=== PATIENT | female | born 1945 | race Caucasian/White ===

== ENCOUNTER → 2019-07-17 | Outpatient (CLI) | payer MEDICARE, OTHER | END | disposition home or self-care (01) | LOC: LAB SHORT 11:42 → PLD 11:42 | DX: D48.5 Neoplasm of uncertain behavior of skin (principal); L82.1 Other seborrheic keratosis | CPT/HCPCS: 88305 ==

== ENCOUNTER 2020-02-11 09:22 | Emergency (ER) | payer MEDICARE, OTHER ==
[~2020-02-11] VITALS: Ht 172.7 cm; Wt 90.7 kg
[2020-02-11 09:49] LABS: Source, Urine Clean Catch
[2020-02-11 09:53] LABS: Bilirubin, Urine Neg (Neg); Blood, Urine Neg (Neg); Glucose Qualitative, Urine Neg (Neg); Ketones, Urine Neg (Neg); Leukocyte Esterase, Urine Neg (Neg); Nitrite, Urine Neg (Neg); Protein, Urine Neg (Neg); Urobilinogen, Urine NORM (Normal)
[2020-02-11 09:54] LABS: Appearance, Urine Clear (Clear); Color, Urine Yellow (P-Yellow)
[2020-02-11] MEDS ORDERED: Robaxin-750750 MG PO (11:45)
== END 2020-02-11 11:58 | disposition home or self-care (01) ==
LOC: ER 09:22
PROVIDERS: Emergency Medicine
DX: M47.26 Other spondylosis with radiculopathy, lumbar region (principal); M51.16 Intervertebral disc disorders with radiculopathy, lumbar region; M16.12 Unilateral primary osteoarthritis, left hip
CPT/HCPCS: 72100; 73502; 81003; 99284-25

== ENCOUNTER 2020-02-16 10:12 | Emergency (ER) | payer MEDICARE, OTHER ==
[~2020-02-16] VITALS: Ht 172.7 cm; Wt 90.7 kg
[~2020-02-16 10:12] MED LIST: Robaxin-750750 MG PO
[2020-02-16] MEDS ORDERED: Percocet 10-321 EACH PO (10:51)
[2020-02-16] MEDS ORDERED: Valtrex1000 MG PO (10:51)
== END 2020-02-16 11:03 | disposition home or self-care (01) ==
LOC: ER 10:12
DX: B02.9 Zoster without complications (principal)
CPT/HCPCS: 99282

== ENCOUNTER → 2020-06-04 | Outpatient (CLI) | payer MEDICARE, OTHER ==
[~2020-06-04] MED LIST changes: +Percocet 10-321 EACH PO; +Valtrex1000 MG PO
== END ==
LOC: PLD 15:20 → LAB SHORT 15:20
DX: C44.41 Basal cell carcinoma of skin of scalp and neck (principal)
CPT/HCPCS: 88305

== ENCOUNTER → 2020-12-14 | Outpatient (CLI) | payer MEDICARE, OTHER | END | disposition home or self-care (01) | LOC: LAB SHORT 12:46 → LAB 12:46 | DX: L85.8 Other specified epidermal thickening (principal) | CPT/HCPCS: 88305 ==

== ENCOUNTER 2021-08-19 13:07 | Day surgery (SDC) | payer MEDICARE, OTHER ==
[~2021-08-19] VITALS: Ht 167.6 cm; Wt 89.7 kg
== END 2021-08-19 15:17 | disposition home or self-care (01) ==
LOC: ORSCSDS 13:07
PROVIDERS: Ophthalmology
PROC: 08RJ3JZ Replacement of Right Lens with Synthetic Substitute, Percutaneous Approach (ICD-10-PCS; principal; 2021-08-19 14:30)
DX: H25.11 Age-related nuclear cataract, right eye (principal); J45.909 Unspecified asthma, uncomplicated; Z87.891 Personal history of nicotine dependence
CPT/HCPCS: 93005; 93010; J2001; J2250; J3301; J7040; V2632

== ENCOUNTER 2022-11-03 12:27 | Inpatient (IN) | payer MEDICARE, OTHER ==
[~2022-11-03] VITALS: Ht 172.7 cm; Wt 92.8 kg
[2022-11-03 14:03] LABS: BASOPHILS ABSOLUTE AUTO 0.03 K/mm3 (0.00-0.23); BASOPHILS PERCENT AUTO 1 % (0-2); EOSINOPHILS ABSOLUTE AUTO 0.06 K/mm3 (0.00-0.68); EOSINOPHILS PERCENT AUTO 1 % (0-6); Hematocrit 37.6 % (33.0-51.0); Hemoglobin 12.1 g/dL (11.5-16.0); IMMATURE GRAN ABSOLUTE AUTO 0.01 K/mm3 (0.00-0.10); IMMATURE GRAN PERCENT AUTO 0 % (0-1); LYMPHOCYTES ABSOLUTE AUTO 1.78 K/mm3 (0.84-5.20); LYMPHOCYTES PERCENT AUTO 37 % (21-46); MONOCYTES PERCENT AUTO 6 % (4-13); Mean Corpuscular HGB 30.2 pg (26.0-34.0); Mean Corpuscular HGB Conc 32.2 g/dL (31.5-36.5); Mean Corpuscular Volume 94 fL (80-100); Mean Platelet Volume 10.3 fL (9.1-12.4); NEUTROPHILS ABSOLUTE AUTO 2.59 K/mm3 (1.96-9.15); NEUTROPHILS PERCENT AUTO 54 % (41-73); Platelet Count 228 K/mm3 (150-400); RDW Coefficient Variation 12.9 % (11.7-14.2); RDW Standard Deviation 44.5 fL (35.1-46.3); Red Blood Cell Count 4.01 M/mm3 (3.80-5.20); White Blood Cell Count 4.77 K/mm3 (4.00-11.30)
[2022-11-03 14:28] LABS: Albumin, Blood 3.7 g/dL (3.4-5.0); Albumin/Globulin Ratio 0.8 (0.8-1.8); Bilirubin, Total 0.9 mg/dL (0.1-1.0); Bun/Creatinine Ratio 13.9 (12.0-20.0); Calcium, Blood 9.5 mg/dL (8.5-10.1); Creatinine, Blood 1.15 mg/dL (0.40-1.00); Globulin, Blood 4.7 g/dL (2.2-4.0); Potassium, Blood 4.3 mmol/L (3.5-5.5); Total Protein, Blood 8.4 g/dL (6.4-8.2)
[2022-11-03 14:45] LABS: International Normalized Ratio 1.05
[2022-11-03 18:41] LABS: Influenza A, PCR NEGATIVE (NEGATIVE); Influenza B, PCR NEGATIVE (NEGATIVE); Resp Syncytial Virus, PCR NEGATIVE (NEGATIVE); SARS-Cov-2 (COVID-19) PCR, MMC NEGATIVE (NEGATIVE)
[2022-11-03] MEDS ORDERED: METO25ER PO (22:28)
--- NOTE | 2022-11-04 04:25 | NUR ---
ARRIVAL TO PCU5/SHIFT SUMMARY PT ARRIVED TO PCU6 AT APPROXIMATELY 0100. PT GOT UP FROM ER [facility] AND AMBULATED INTO BATHRROM WITH SBA. PT ORIENTED TO ROOM/UNIT/CALL LIGHT. PT A&Ox4, CALLS AND COMMUNICATES NEEDS APPROPRIATELY. VSS, BP STABLE, AFIB 90-100's UP TO 120's WITH ACTIVITY, DENIES CP/PRESSURE. SpO2> 92% RA, REPORTS MILD SOB AT REST, WORSE SOB WITH ACTIVITY AND LYING FLAT. PT STATED THAT THE SOB HAS GOTTEN BETTER SINCE ARIVING TO HOSPITAL AND RECEIVING LASIX IN ER. PT JH TO BATHROOM, CONTINENT OF URINE, NO BM THIS SHIFT. NO OTHER EVENTS, WILL REPORT TO ONCOMING RN.
[2022-11-04 04:36] LABS: Magnesium, Blood 2.3 mg/dL (1.6-2.4)
[2022-11-04 04:43] LABS: Calcium, Blood 9.6 mg/dL (8.5-10.1); Creatinine, Blood 1.15 mg/dL (0.40-1.00); Potassium, Blood 3.6 mmol/L (3.5-5.5)
--- NOTE | 2022-11-04 10:25 | NUR ---
CARE ASSUMPTION THIS RN ASSUMED CARE AT 0700. VSS. TELE AFIB 90-100S. PATIENT IS ALERT AND ORIENTED X4. PATIENT REPROTS NO CHEST PAIN/PRESSURE, PAIN, OR SHORTNESS OF BREATH. LUNG SOUNDS CLEAR UPPER LOBES BILATERALLY AND DIM IN BASES. PATIENT HAS +1 EDEMA TO LOWER EXTREMITIES. ABD IS ACTIVE SOFT AND NONTENDER. PATIENT IS ABLE TO VOID INDEPDENTLY. PATIENT IS ABLE TO PERFORM ALL ADLS INDEPDENTLY. SEE SHIF ASSESSMENT FOR FURTHER DETAILS. NATALIO IN TO SEE PATIENT THIS AM AND DISCUSSED PLAN OF CARE. PLAN OF CARE IS UP TO DATE. CALL LIGHT IS WITHIN REACH AND BED IS IN LOWEST POSITION.
--- NOTE | 2022-11-04 18:29 | NUR ---
SHIFT SUMMARY PATIEINT NEURO REMAINS INTACT AND UNCHANGED. VSS. TELE AFIB. PATIENT HAS BEEN INDEPDENT IN THE ROOM. PATIENT USES CALL LIGHT APPRORIATELY. NO ACUTE CHANGES THIS SHIFT. PATIENT HAD AT BEDSIDE THROUGHOUT THE DAY. PLAN OF CARE IS UP TO DATE. CALL LIGHT WITHIN REACH AND BED IN LOWEST POSITION.
[2022-11-05 04:13] LABS: BASOPHILS ABSOLUTE AUTO 0.02 K/mm3 (0.00-0.23); BASOPHILS PERCENT AUTO 0 % (0-2); EOSINOPHILS PERCENT AUTO 2 % (0-6); Hematocrit 36.6 % (33.0-51.0); Hemoglobin 11.7 g/dL (11.5-16.0); IMMATURE GRAN ABSOLUTE AUTO 0.02 K/mm3 (0.00-0.10); IMMATURE GRAN PERCENT AUTO 0 % (0-1); LYMPHOCYTES ABSOLUTE AUTO 2.12 K/mm3 (0.84-5.20); LYMPHOCYTES PERCENT AUTO 37 % (21-46); MONOCYTES ABSOLUTE AUTO 0.37 K/mm3 (0.16-1.47); MONOCYTES PERCENT AUTO 7 % (4-13); Mean Corpuscular HGB 29.5 pg (26.0-34.0); Mean Corpuscular Volume 92 fL (80-100); Mean Platelet Volume 10.5 fL (9.1-12.4); NEUTROPHILS ABSOLUTE AUTO 3.05 K/mm3 (1.96-9.15); NEUTROPHILS PERCENT AUTO 54 % (41-73); Platelet Count 234 K/mm3 (150-400); RDW Coefficient Variation 12.6 % (11.7-14.2); RDW Standard Deviation 42.6 fL (35.1-46.3); Red Blood Cell Count 3.97 M/mm3 (3.80-5.20); White Blood Cell Count 5.68 K/mm3 (4.00-11.30)
[2022-11-05 04:44] LABS: Albumin, Blood 3.3 g/dL (3.4-5.0); Anion Gap 5 mmol/L (6-16); Blood Urea Nitrogen 20 mg/dL (8-24); Bun/Creatinine Ratio 14.9 (12.0-20.0); CO2, Blood 30 mmol/L (21-32); Calcium, Blood 9.3 mg/dL (8.5-10.1); Chloride, Blood 100 mmol/L (98-108); Creatinine, Blood 1.34 mg/dL (0.40-1.00); Glomerular Filtration Rate 41 (60-); Glucose, Blood 104 mg/dL (70-99); Phosphorus, Blood 3.8 mg/dL (2.5-4.9); Sodium, Blood 135 mmol/L (136-145)
--- NOTE | 2022-11-05 04:51 | NUR ---
PT INDEPENDENT IN ROOM, AMBULATORY TO BATHROOM, NO ISSUES OVERNIGHT, AFEBRILE, VSS
--- NOTE | 2022-11-05 07:59 | NUR ---
Received report from Noc RN. Patient awakened easily to verbal stimuli. She is alert and oriented and is able to communicate her needs. She is independent with positioning for comfort. She is in A-Fib 80-100's. She is on RA and sats 97% and denies any SOB. She has20 ga IV to RAC and has been flushed and SL'd.
[2022-11-05] MEDS ORDERED: POTCHL20ER PO (10:14)
[2022-11-05] MEDS ORDERED: FURO40 PO (10:14)
--- NOTE | 2022-11-05 11:30 | NUR ---
Dr Busch has been by and is discharging patient. She is up in room doing ADLS, tolerated meds well. She was given written discharge orders and returned understandin. PCT removed IV intact. She was taken to front of hospital and went home by cab. All belonging with patient.
== END 2022-11-05 11:35 | disposition home or self-care (01) | DRG 292 ==
LOC: ER 12:27 → ERHOLD 18:01 → PCU 18:01
PROVIDERS: Emergency Medicine; Family Medicine; Physician Assistant; ADMIT Internal Medicine
DX: I50.23 Acute on chronic systolic (congestive) heart failure (principal); I24.8 Other forms of acute ischemic heart disease; I48.20 Chronic atrial fibrillation, unspecified; Z66 Do not resuscitate; Z20.822 Contact with and (suspected) exposure to COVID-19
CPT/HCPCS: 0241U; 36415; 71046; 71260; 80048; 80053; 80069; 83690; 83735; 83880; 84484; 85025; 85379; 85610; 93005; 93010; 93306; 96374-59; 99285-25; A9270; J1650; J1940; Q9967

== ENCOUNTER 2022-11-23 09:47 | Emergency (ER) | payer MEDICARE, OTHER ==
[~2022-11-23] VITALS: Ht 172.7 cm; Wt 86.2 kg
[~2022-11-23 09:47] MED LIST changes: +FURO40 PO; +METO25ER PO; +POTCHL20ER PO
[2022-11-23 10:27] LABS: BASOPHILS ABSOLUTE AUTO 0.03 K/mm3 (0.00-0.23); BASOPHILS PERCENT AUTO 1 % (0-2); EOSINOPHILS ABSOLUTE AUTO 0.18 K/mm3 (0.00-0.68); EOSINOPHILS PERCENT AUTO 3 % (0-6); Hematocrit 42.1 % (33.0-51.0); Hemoglobin 13.6 g/dL (11.5-16.0); IMMATURE GRAN ABSOLUTE AUTO 0.01 K/mm3 (0.00-0.10); IMMATURE GRAN PERCENT AUTO 0 % (0-1); LYMPHOCYTES ABSOLUTE AUTO 2.01 K/mm3 (0.84-5.20); LYMPHOCYTES PERCENT AUTO 34 % (21-46); MONOCYTES ABSOLUTE AUTO 0.39 K/mm3 (0.16-1.47); MONOCYTES PERCENT AUTO 7 % (4-13); Mean Corpuscular HGB 29.5 pg (26.0-34.0); Mean Corpuscular HGB Conc 32.3 g/dL (31.5-36.5); Mean Corpuscular Volume 91 fL (80-100); Mean Platelet Volume 10.2 fL (9.1-12.4); NEUTROPHILS ABSOLUTE AUTO 3.33 K/mm3 (1.96-9.15); NEUTROPHILS PERCENT AUTO 56 % (41-73); Platelet Count 201 K/mm3 (150-400); RDW Coefficient Variation 12.7 % (11.7-14.2); RDW Standard Deviation 41.7 fL (35.1-46.3); Red Blood Cell Count 4.61 M/mm3 (3.80-5.20); White Blood Cell Count 5.95 K/mm3 (4.00-11.30)
[2022-11-23 10:55] LABS: Albumin, Blood 3.9 g/dL (3.4-5.0); Albumin/Globulin Ratio 0.8 (0.8-1.8); Bilirubin, Total 0.7 mg/dL (0.1-1.0); Bun/Creatinine Ratio 23.1 (12.0-20.0); Calcium, Blood 9.5 mg/dL (8.5-10.1); Creatinine, Blood 1.21 mg/dL (0.40-1.00); Globulin, Blood 4.9 g/dL (2.2-4.0); Potassium, Blood 4.8 mmol/L (3.5-5.5); Total Protein, Blood 8.8 g/dL (6.4-8.2)
[2022-11-23] MEDS ORDERED: ALDACTONE25 MG PO (13:11)
== END 2022-11-23 13:31 | disposition home or self-care (01) ==
LOC: ER 09:47
PROVIDERS: Physician Assistant
DX: I50.9 Heart failure, unspecified (principal); J44.9 Chronic obstructive pulmonary disease, unspecified; N18.30 Chronic kidney disease, stage 3 unspecified; I25.2 Old myocardial infarction; Z79.899 Other long term (current) drug therapy
CPT/HCPCS: 71046; 80053; 83880; 84484; 85025

== ENCOUNTER 2023-01-28 00:11 | Day surgery (SDC) | payer MEDICARE, OTHER ==
[~2023-01-28 00:11] MED LIST changes: +ALDACTONE25 MG PO; +ELIQUIS5 M3 PO
[2023-01-28 08:09] VITALS: BP 132/97
== END 2023-01-28 08:11 | disposition home or self-care (01) ==
LOC: ATC 00:11
DX: I50.20 Unspecified systolic (congestive) heart failure (principal); I48.0 Paroxysmal atrial fibrillation; R06.02 Shortness of breath; I34.0 Nonrheumatic mitral (valve) insufficiency; I48.19 Other persistent atrial fibrillation; J45.909 Unspecified asthma, uncomplicated; Z88.5 Allergy status to narcotic agent; Z88.8 Allergy status to other drugs, medicaments and biological substances
CPT/HCPCS: 96374; J1940

== ENCOUNTER 2023-01-29 00:03 | Day surgery (SDC) | payer MEDICARE, OTHER ==
[2023-01-29 08:03] VITALS: BP 126/91
== END 2023-01-29 08:10 | disposition home or self-care (01) ==
LOC: ATC 00:03
DX: I50.20 Unspecified systolic (congestive) heart failure (principal); I48.0 Paroxysmal atrial fibrillation; R06.02 Shortness of breath; I34.0 Nonrheumatic mitral (valve) insufficiency; I48.19 Other persistent atrial fibrillation; J45.909 Unspecified asthma, uncomplicated; Z88.5 Allergy status to narcotic agent; Z88.8 Allergy status to other drugs, medicaments and biological substances
CPT/HCPCS: 96374; J1940

== ENCOUNTER 2023-03-08 06:13 | Day surgery (SDC) | payer MEDICARE, OTHER ==
[2023-03-08] VITALS (11 sets, daily range): BP systolic 111–141; BP diastolic 88–116
[~2023-03-08] VITALS: Ht 175.3 cm; Wt 86.0 kg
[~2023-03-08 06:13] MED LIST changes: +MAGNESIUM OXID500 MG PO; +Saw Palmetto160 MG; +Vitamin B Comple1 EA PO; +XARELTO20 MG PO
--- NOTE | 2023-03-08 07:24 | NUR ---
PT'S IN ROOM.
--- NOTE | 2023-03-08 08:50 | NUR ---
DR. CAREY AT THE BEDSIDE AND SPOKE EXTENSIVELY WITH THE PATIENT AND , ALL QUEESTIONS ANSWERED. CONSENTED AND PATIENT TAKEN TO THE CATH[facility].
--- NOTE | 2023-03-08 10:15 | NUR ---
PATIENT ARRIVED TO RECOVERY ROOM HOB FLAT. R GROIN SITE C/D/I SOFT/NONTENDER, NO EVIDENCE OF HEMATOMA. PATIENT CONVERSING APPROPRIATELY. VSS ON ROOM AIR
[2023-03-08] MEDS ORDERED: ELIQUIS5 M2 PO (10:23)
--- NOTE | 2023-03-08 11:15 | NUR ---
HOB ELEVATED 30 DEGREES, R GROIN SITE C/D/I SOFT/NONTENDER, NO EVIDENCE OF HEMATOMA. VSS ON ROOM AIR
--- NOTE | 2023-03-08 11:45 | NUR ---
HOB ELEVATED 45 DEGREES. R GROIN SITE C/D/I SOFT/NONTENDER, NO EVIDENCE OF HEMATOMA. PATIENT TOLERATING PO INTAKE WELL. VSS ON ROOM AIR
--- NOTE | 2023-03-08 12:16 | NUR ---
DISCHARGE INSTRUCTIONS AND FOLLOW UP APPOINTMENT REVIEWED WITH PATIENT AND SPOUSE AT BEDSIDE, ALL QUESTIONS WERE ANSWERED. R GROIN SITE C/D/I SOFT/NONTENDER, NO EVIDENCE OF HEMATOMA. VSS ON ROOM AIR
--- NOTE | 2023-03-08 12:40 | NUR ---
PATIENT AMBULATING TO RESTROOM AND VOIDING WITHOUT DIFFICULTY. R GROIN SITE C/D/I SOFT/NONTENDER, NO EVIDENCE OF HEMATOMA. VSS ON ROOM AIR.
--- NOTE | 2023-03-08 12:57 | NUR ---
PATIENT DISCHARGED HOME AT THIS TIME. ALL PATIENT BELONGINGS AND PAPERWORK LEFT WITH PATIENT. R GROIN SITE C/D/I SOFT/NONTENDER, NO EVIDENCE OF HEMATOMA. PATIENT INSTRUCTED ON FEMORAL SITE CARE. PIV REMVOED WITHOUT DIFFICULTY, CATHETER INTACT. PATIENT WHEELED TO HOSPITAL ENTRANCE, SPOUSE ABLE TO PROVIDE TRANSPORTATION HOME.
== END 2023-03-08 13:41 | disposition home or self-care (01) ==
LOC: MHTC 06:13
DX: I25.118 Atherosclerotic heart disease of native coronary artery with other forms of angina pectoris (principal); I34.0 Nonrheumatic mitral (valve) insufficiency; I48.19 Other persistent atrial fibrillation; J45.909 Unspecified asthma, uncomplicated; I50.9 Heart failure, unspecified; N28.9 Disorder of kidney and ureter, unspecified; Z79.01 Long term (current) use of anticoagulants; Z88.5 Allergy status to narcotic agent; Z88.8 Allergy status to other drugs, medicaments and biological substances
CPT/HCPCS: 76937; 93005; 93010; 93458; 99152; 99153; C1760; C1769; C1894; J1644; J2250; J3010; J7030; J7050; Q9967

== ENCOUNTER 2023-03-29 05:56 | Day surgery (SDC) | payer MEDICARE, OTHER ==
[~2023-03-29 05:56] MED LIST changes: +ELIQUIS5 M2 PO
[2023-03-29 07:00] VITALS: BP 126/97
[2023-03-29 07:57] VITALS: BP 128/84
[2023-03-29 07:58] VITALS: BP 121/91
[2023-03-29 08:21] VITALS: BP 120/92
[2023-03-29 08:33] VITALS: BP 130/94
--- NOTE | 2023-03-29 09:00 | NUR ---
PT VERBALIZED UNDERSTANDING OF WRITTEN AND VERBAL D/C INST. PT AMB TO BATHROOM /S DIFFICULTY. SB 55BPM ON D/C. IV REMOVED. PT TAKEN OUT OF THE [facility]ENTER VIA W/C.
== END 2023-03-29 09:00 | disposition home or self-care (01) ==
LOC: MHTC 05:56
DX: I48.19 Other persistent atrial fibrillation (principal); I50.20 Unspecified systolic (congestive) heart failure; I48.0 Paroxysmal atrial fibrillation; I20.9 Angina pectoris, unspecified; I25.2 Old myocardial infarction; I42.9 Cardiomyopathy, unspecified; Z88.5 Allergy status to narcotic agent
CPT/HCPCS: 92960; 93005; 93010; 93312; 93325; A9270; J0282; J2704; J7030

== ENCOUNTER 2023-05-16 12:38 | Emergency (ER) | payer MEDICARE, OTHER ==
[~2023-05-16] VITALS: Ht 175.3 cm; Wt 85.7 kg
[2023-05-16 13:49] LABS: BASOPHILS ABSOLUTE AUTO 0.02 K/mm3 (0.00-0.23); BASOPHILS PERCENT AUTO 1 % (0-2); EOSINOPHILS ABSOLUTE AUTO 0.03 K/mm3 (0.00-0.68); EOSINOPHILS PERCENT AUTO 1 % (0-6); Hematocrit 35.5 % (33.0-51.0); Hemoglobin 11.7 g/dL (11.5-16.0); IMMATURE GRAN ABSOLUTE AUTO 0.01 K/mm3 (0.00-0.10); IMMATURE GRAN PERCENT AUTO 0 % (0-1); LYMPHOCYTES ABSOLUTE AUTO 1.36 K/mm3 (0.84-5.20); LYMPHOCYTES PERCENT AUTO 33 % (21-46); MONOCYTES ABSOLUTE AUTO 0.27 K/mm3 (0.16-1.47); MONOCYTES PERCENT AUTO 7 % (4-13); Mean Corpuscular HGB 30.8 pg (26.0-34.0); Mean Corpuscular Volume 93 fL (80-100); Mean Platelet Volume 9.9 fL (9.1-12.4); NEUTROPHILS ABSOLUTE AUTO 2.39 K/mm3 (1.96-9.15); NEUTROPHILS PERCENT AUTO 59 % (41-73); Platelet Count 235 K/mm3 (150-400); RDW Coefficient Variation 14.1 % (11.7-14.2); RDW Standard Deviation 48.2 fL (35.1-46.3); White Blood Cell Count 4.08 K/mm3 (4.00-11.30)
[2023-05-16 14:03] LABS: Albumin, Blood 3.6 g/dL (3.4-5.0); Albumin/Globulin Ratio 0.7 (0.8-1.8); Bilirubin, Total 0.5 mg/dL (0.1-1.0); Bun/Creatinine Ratio 12.3 (12.0-20.0); Calcium, Blood 9.2 mg/dL (8.5-10.1); Creatinine, Blood 1.46 mg/dL (0.40-1.00); Globulin, Blood 5.3 g/dL (2.2-4.0); Potassium, Blood 3.5 mmol/L (3.5-5.5); Total Protein, Blood 8.9 g/dL (6.4-8.2)
[2023-05-16 15:18] LABS: Source, Urine Clean Catch
[2023-05-16 15:28] LABS: Bilirubin, Urine Neg (Neg); Blood, Urine Neg (Neg); Color, Urine Yellow (P-Yellow); Glucose Qualitative, Urine Neg (Neg); Ketones, Urine Neg (Neg); Leukocyte Esterase, Urine 1+ (Neg); Nitrite, Urine Neg (Neg); Protein, Urine Neg (Neg); Specific Gravity, Urine 1.015 (1.003-1.022); Urobilinogen, Urine NORM (Normal)
[2023-05-16 15:41] LABS: Appearance, Urine Hazy (Clear)
[2023-05-16 15:42] LABS: Red Blood Cells, Urine 0-2 /hpf (0-2)
[2023-05-16 15:43] LABS: Bacteria Mod /hpf; Mucus Light (0-Heavy); Squamous Epithelial Cells Few /hpf (Few)
[2023-05-16] MEDS ORDERED: LIDOCAINE1 EACH TOP (16:02)
[2023-05-16] MEDS ORDERED: Robaxin750 MG PO (16:02)
[2023-05-16 16:20] VITALS: BP 146/99
[2023-05-16] MEDS ORDERED: CEPH500 PO (16:49)
== END 2023-05-16 16:20 | disposition home or self-care (01) ==
LOC: ER 12:38
PROVIDERS: Emergency Medicine
DX: N39.0 Urinary tract infection, site not specified (principal); M54.50 Low back pain, unspecified; Z88.5 Allergy status to narcotic agent; Z88.8 Allergy status to other drugs, medicaments and biological substances; Z79.899 Other long term (current) drug therapy; I48.91 Unspecified atrial fibrillation; I50.9 Heart failure, unspecified; J44.9 Chronic obstructive pulmonary disease, unspecified; N18.30 Chronic kidney disease, stage 3 unspecified; Z87.891 Personal history of nicotine dependence
CPT/HCPCS: 80053; 81001; 85025; 99284; A9270

== ENCOUNTER 2023-05-20 17:24 | Emergency (ER) | payer MEDICARE, OTHER ==
[~2023-05-20] VITALS: Ht 175.3 cm; Wt 83.9 kg
[~2023-05-20 17:24] MED LIST changes: +CEPH500 PO; +LIDOCAINE1 EACH TOP; +Robaxin750 MG PO
[2023-05-20 18:28] LABS: BASOPHILS ABSOLUTE AUTO 0.03 K/mm3 (0.00-0.23); BASOPHILS PERCENT AUTO 1 % (0-2); EOSINOPHILS ABSOLUTE AUTO 0.04 K/mm3 (0.00-0.68); EOSINOPHILS PERCENT AUTO 1 % (0-6); Hematocrit 35.3 % (33.0-51.0); Hemoglobin 11.8 g/dL (11.5-16.0); IMMATURE GRAN ABSOLUTE AUTO 0.01 K/mm3 (0.00-0.10); IMMATURE GRAN PERCENT AUTO 0 % (0-1); LYMPHOCYTES ABSOLUTE AUTO 1.83 K/mm3 (0.84-5.20); LYMPHOCYTES PERCENT AUTO 36 % (21-46); MONOCYTES ABSOLUTE AUTO 0.29 K/mm3 (0.16-1.47); MONOCYTES PERCENT AUTO 6 % (4-13); Mean Corpuscular HGB 30.6 pg (26.0-34.0); Mean Corpuscular HGB Conc 33.4 g/dL (31.5-36.5); Mean Corpuscular Volume 92 fL (80-100); Mean Platelet Volume 10.1 fL (9.1-12.4); NEUTROPHILS ABSOLUTE AUTO 2.89 K/mm3 (1.96-9.15); NEUTROPHILS PERCENT AUTO 57 % (41-73); Platelet Count 211 K/mm3 (150-400); RDW Standard Deviation 46.6 fL (35.1-46.3); Red Blood Cell Count 3.85 M/mm3 (3.80-5.20); White Blood Cell Count 5.09 K/mm3 (4.00-11.30)
[2023-05-20 18:43] LABS: Albumin, Blood 3.6 g/dL (3.4-5.0); Albumin/Globulin Ratio 0.7 (0.8-1.8); Bilirubin, Total 0.6 mg/dL (0.1-1.0); Bun/Creatinine Ratio 9.7 (12.0-20.0); Calcium, Blood 9.6 mg/dL (8.5-10.1); Creatinine, Blood 1.24 mg/dL (0.40-1.00); Globulin, Blood 5.2 g/dL (2.2-4.0); Magnesium, Blood 2.1 mg/dL (1.6-2.4); Potassium, Blood 3.7 mmol/L (3.5-5.5); Total Protein, Blood 8.8 g/dL (6.4-8.2)
[2023-05-20 19:07] LABS: Source, Urine Clean Catch
[2023-05-20 19:12] LABS: Appearance, Urine Clear (Clear); Bilirubin, Urine Neg (Neg); Blood, Urine Neg (Neg); Glucose Qualitative, Urine Neg (Neg); Ketones, Urine Neg (Neg); Leukocyte Esterase, Urine Neg (Neg); Nitrite, Urine Neg (Neg); Protein, Urine Neg (Neg); Specific Gravity, Urine 1.015 (1.003-1.022); Urobilinogen, Urine NORM (Normal)
[2023-05-20 19:13] LABS: Color, Urine Pale Yellow (P-Yellow)
[2023-05-20 20:00] VITALS: BP 125/99
== END 2023-05-20 20:20 | disposition home or self-care (01) ==
LOC: ER 17:24
PROVIDERS: Student in an Organized Health Care Education/Training Program
DX: M54.50 Low back pain, unspecified (principal); G89.29 Other chronic pain; R10.9 Unspecified abdominal pain; Z88.5 Allergy status to narcotic agent; Z88.8 Allergy status to other drugs, medicaments and biological substances; Z79.899 Other long term (current) drug therapy; I48.91 Unspecified atrial fibrillation; I50.9 Heart failure, unspecified; N18.30 Chronic kidney disease, stage 3 unspecified; I25.2 Old myocardial infarction; Z87.891 Personal history of nicotine dependence
CPT/HCPCS: 74177; 80053; 81003; 83735; 85025; 93005; 93010; 96374-59; 96376; 99284-25; A9270; J3010; Q9967

== ENCOUNTER 2023-06-23 13:35 | Emergency (ER) | payer MEDICARE, OTHER ==
[~2023-06-23] VITALS: Ht 177.8 cm; Wt 81.7 kg
[2023-06-23 16:42] LABS: BASOPHILS ABSOLUTE AUTO 0.03 K/mm3 (0.00-0.23); BASOPHILS PERCENT AUTO 1 % (0-2); EOSINOPHILS ABSOLUTE AUTO 0.03 K/mm3 (0.00-0.68); EOSINOPHILS PERCENT AUTO 1 % (0-6); Hematocrit 41.3 % (33.0-51.0); Hemoglobin 13.9 g/dL (11.5-16.0); IMMATURE GRAN ABSOLUTE AUTO 0.03 K/mm3 (0.00-0.10); IMMATURE GRAN PERCENT AUTO 1 % (0-1); LYMPHOCYTES ABSOLUTE AUTO 1.94 K/mm3 (0.84-5.20); LYMPHOCYTES PERCENT AUTO 30 % (21-46); MONOCYTES ABSOLUTE AUTO 0.38 K/mm3 (0.16-1.47); MONOCYTES PERCENT AUTO 6 % (4-13); Mean Corpuscular HGB 30.8 pg (26.0-34.0); Mean Corpuscular HGB Conc 33.7 g/dL (31.5-36.5); Mean Corpuscular Volume 91 fL (80-100); Mean Platelet Volume 10.2 fL (9.1-12.4); NEUTROPHILS ABSOLUTE AUTO 4.08 K/mm3 (1.96-9.15); NEUTROPHILS PERCENT AUTO 63 % (41-73); Platelet Count 241 K/mm3 (150-400); RDW Coefficient Variation 13.6 % (11.7-14.2); RDW Standard Deviation 46.3 fL (35.1-46.3); Red Blood Cell Count 4.52 M/mm3 (3.80-5.20); White Blood Cell Count 6.49 K/mm3 (4.00-11.30)
[2023-06-23 17:00] LABS: Albumin, Blood 4.3 g/dL (3.4-5.0); Albumin/Globulin Ratio 0.8 (0.8-1.8); Bilirubin, Total 0.6 mg/dL (0.1-1.0); Bun/Creatinine Ratio 8.3 (12.0-20.0); Calcium, Blood 10.3 mg/dL (8.5-10.1); Creatinine, Blood 1.08 mg/dL (0.40-1.00); Globulin, Blood 5.7 g/dL (2.2-4.0); Magnesium, Blood 2.3 mg/dL (1.6-2.4); Potassium, Blood 3.7 mmol/L (3.5-5.5)
[2023-06-23 18:15] VITALS: BP 128/70
== END 2023-06-24 03:19 | disposition home or self-care (01) ==
LOC: ER 13:35
PROVIDERS: Student in an Organized Health Care Education/Training Program
DX: I48.91 Unspecified atrial fibrillation (principal); Z88.5 Allergy status to narcotic agent; Z88.8 Allergy status to other drugs, medicaments and biological substances; Z79.899 Other long term (current) drug therapy; I50.9 Heart failure, unspecified; J44.9 Chronic obstructive pulmonary disease, unspecified; N18.30 Chronic kidney disease, stage 3 unspecified; I25.2 Old myocardial infarction; Z87.891 Personal history of nicotine dependence
CPT/HCPCS: 71045; 80053; 83735; 85025; 93005; 93010; 96374; 96375; 96376; 99284-25; A9270; J1170; J1885

== ENCOUNTER 2023-08-05 09:31 | Emergency (ER) | payer MEDICARE, OTHER ==
[~2023-08-05] VITALS: Ht 162.6 cm; Wt 68.0 kg
[2023-08-05 10:49] LABS: BASOPHILS ABSOLUTE AUTO 0.01 K/mm3 (0.00-0.23); BASOPHILS PERCENT AUTO 0 % (0-2); EOSINOPHILS ABSOLUTE AUTO 0.02 K/mm3 (0.00-0.68); EOSINOPHILS PERCENT AUTO 0 % (0-6); Hematocrit 32.9 % (33.0-51.0); Hemoglobin 11.2 g/dL (11.5-16.0); IMMATURE GRAN ABSOLUTE AUTO 0.03 K/mm3 (0.00-0.10); IMMATURE GRAN PERCENT AUTO 1 % (0-1); LYMPHOCYTES ABSOLUTE AUTO 0.59 K/mm3 (0.84-5.20); LYMPHOCYTES PERCENT AUTO 10 % (21-46); MONOCYTES ABSOLUTE AUTO 0.46 K/mm3 (0.16-1.47); MONOCYTES PERCENT AUTO 8 % (4-13); Mean Corpuscular HGB 29.7 pg (26.0-34.0); Mean Corpuscular Volume 87 fL (80-100); NEUTROPHILS ABSOLUTE AUTO 4.99 K/mm3 (1.96-9.15); NEUTROPHILS PERCENT AUTO 82 % (41-73); Platelet Count 139 K/mm3 (150-400); RDW Standard Deviation 44.2 fL (35.1-46.3); Red Blood Cell Count 3.77 M/mm3 (3.80-5.20)
[2023-08-05 10:56] LABS: Mean Platelet Volume 13.7 fL (9.1-12.4)
[2023-08-05 11:08] LABS: Albumin/Globulin Ratio 0.6 (0.8-1.8); Bilirubin, Total 1.3 mg/dL (0.1-1.0); Bun/Creatinine Ratio 20.5 (12.0-20.0); Creatinine, Blood 1.71 mg/dL (0.40-1.00); Globulin, Blood 5.4 g/dL (2.2-4.0); Potassium, Blood 3.3 mmol/L (3.5-5.5); Total Protein, Blood 8.4 g/dL (6.4-8.2)
[2023-08-05 12:45] VITALS: BP 117/82
== END 2023-08-05 13:10 | disposition home or self-care (01) ==
LOC: ER 09:31
PROVIDERS: Emergency Medicine
DX: S22.089A Unspecified fracture of T11-T12 vertebra, initial encounter for closed fracture (principal); K59.00 Constipation, unspecified; R33.9 Retention of urine, unspecified; C90.00 Multiple myeloma not having achieved remission; X58.XXXA Exposure to other specified factors, initial encounter; I48.91 Unspecified atrial fibrillation; I50.9 Heart failure, unspecified; J44.9 Chronic obstructive pulmonary disease, unspecified; N18.30 Chronic kidney disease, stage 3 unspecified; I25.2 Old myocardial infarction; Z88.5 Allergy status to narcotic agent; Z79.899 Other long term (current) drug therapy; Z87.891 Personal history of nicotine dependence
CPT/HCPCS: 74177; 80053; 83690; 85025; 93005; 93010; 99284-25; A9270; J3480; Q9967

== ENCOUNTER 2023-08-07 18:12 | Inpatient (IN) | payer MEDICARE, OTHER ==
[~2023-08-07] VITALS: Ht 170.2 cm; Wt 73.5 kg
[2023-08-07 22:15] LABS: Magnesium, Blood 2.3 mg/dL (1.6-2.4)
[2023-08-08] VITALS (22 sets, daily range): BP systolic 92–142; BP diastolic 61–925
[2023-08-08 00:02] LABS: Thyroid Stimulating Hormone 2.72 uIU/mL (0.360-4.800)
[2023-08-08 00:55] LABS: Source, Urine Straight Cath
[2023-08-08 01:19] LABS: Bilirubin, Urine Neg (Neg); Blood, Urine 2+ (Neg); Glucose Qualitative, Urine Neg (Neg); Ketones, Urine Neg (Neg); Leukocyte Esterase, Urine 3+ (Neg); Nitrite, Urine Neg (Neg); Protein, Urine 2+ (Neg); Specific Gravity, Urine 1.015 (1.003-1.022); Urobilinogen, Urine NORM (Normal)
[2023-08-08 01:21] LABS: Appearance, Urine Cloudy (Clear); Color, Urine Yellow (P-Yellow)
[2023-08-08 01:22] LABS: Bacteria Many /hpf; Red Blood Cells, Urine 0-2 /hpf (0-2); Squamous Epithelial Cells Rare /hpf (Few); White Blood Cells, Urine 25-50 /hpf (0-5)
[2023-08-08 02:25] LABS: BASOPHILS ABSOLUTE AUTO 0.01 K/mm3 (0.00-0.23); BASOPHILS PERCENT AUTO 0 % (0-2); EOSINOPHILS ABSOLUTE AUTO 0.01 K/mm3 (0.00-0.68); EOSINOPHILS PERCENT AUTO 0 % (0-6); Hematocrit 29.8 % (33.0-51.0); Hemoglobin 10.1 g/dL (11.5-16.0); IMMATURE GRAN ABSOLUTE AUTO 0.06 K/mm3 (0.00-0.10); IMMATURE GRAN PERCENT AUTO 1 % (0-1); LYMPHOCYTES ABSOLUTE AUTO 0.69 K/mm3 (0.84-5.20); LYMPHOCYTES PERCENT AUTO 8 % (21-46); MONOCYTES ABSOLUTE AUTO 0.83 K/mm3 (0.16-1.47); MONOCYTES PERCENT AUTO 10 % (4-13); Mean Corpuscular HGB 29.7 pg (26.0-34.0); Mean Corpuscular HGB Conc 33.9 g/dL (31.5-36.5); Mean Corpuscular Volume 88 fL (80-100); Mean Platelet Volume 11.2 fL (9.1-12.4); NEUTROPHILS PERCENT AUTO 81 % (41-73); Platelet Count 243 K/mm3 (150-400); RDW Coefficient Variation 14.4 % (11.7-14.2); RDW Standard Deviation 45.6 fL (35.1-46.3)
--- NOTE | 2023-08-08 02:48 | NUR ---
ASSUMPTION OF CARE PT ARRIVED TO PCU AT 0015; THIS RN ASSUMED CARE AT THIS TIME. REPORT FROM [facility] ED RN. PT ARRIVED ON RA, A&O X4. RESPONDING TO QUESTIONS APPROPRIATELY, PT ABLE TO TRANSFER TO HOSPITAL BED WITH SBA. PT ON RA, SPO2 98%. BP; 113/91, HR 145, RR 16, TEMP 99.0. PT DENIES CP OR PRESSURE, DENIES PALPITATIONS, AND DENIES SOB. PT DOES REPORT "SOME DIZZINESS AT TIMES". PT GIVEN 5 MG OF LOPRESSOR IV. HR IMPROVED TO 1 TEENS TO 120'S, WITH RHYTHM REMAINING AFIB. WILL CONTINUE TO MONITOR AND TREAT PER ORDERS. LS CLEAR. PT DENIES ANY CONCERNS OR ISSUES WITH GI/. PT STATES ABD PAIN IS "OKAY RIGHT NOW". DENIES OTHER PAIN. PT ORIENTED TO ROOM AND CALL LIGHT. FRESH WATER PROVIDED AND PT MADE COMFORTABLE. CALL LIGHT IN REACH. IV POTASSIUM INFUSING UPON ARRIVAL.
[2023-08-08 03:09] LABS: Albumin, Blood 2.4 g/dL (3.4-5.0); Albumin/Globulin Ratio 0.5 (0.8-1.8); Bilirubin, Total 1.6 mg/dL (0.1-1.0); Bun/Creatinine Ratio 16.3 (12.0-20.0); Calcium, Blood 6.9 mg/dL (8.5-10.1); Creatinine, Blood 1.23 mg/dL (0.40-1.00); Globulin, Blood 4.7 g/dL (2.2-4.0); Potassium, Blood 3.5 mmol/L (3.5-5.5); Total Protein, Blood 7.1 g/dL (6.4-8.2)
--- NOTE | 2023-08-08 06:42 | NUR ---
SHIFT SUMMARY PT REMAINS A&O X4. VSS; HRR REMAINS AFIB 1 TEEN'S - 120'S AT REST, INCREASES TO 130 -150 WITH ACTIVITY. THIS RN ADMINISTERED 5 MG IV LOPRESSOR X1 PER EMAR AND PARAMETERS. PT CONTINUES TO DENY CP OR PRESSURE, SOB OR PALPITATIONS. THIS RN NOTES SOB WITH EXERTION, SPO2 MAINTAINS >97%. PT USING BSC WITH SBA. PT HAD 1 BM; LOOSE. LIQUID, BROWN IN COLOR. NO CHANGES FROM ASSUMPTION OF CARE NOTE. CALL LIGHT IN REACH. WILL UPDATE ONCOMING RN
[2023-08-08 12:00] LABS: Source, Urine Foley catheter
[2023-08-08 12:02] LABS: Appearance, Urine Hazy (Clear); Bilirubin, Urine Neg (Neg); Blood, Urine 1+ (Neg); Color, Urine Yellow (P-Yellow); Glucose Qualitative, Urine Neg (Neg); Ketones, Urine 1+ (Neg); Leukocyte Esterase, Urine 1+ (Neg); Nitrite, Urine Neg (Neg); Protein, Urine 2+ (Neg); Urobilinogen, Urine NORM (Normal)
[2023-08-08 12:30] LABS: Bacteria Many /hpf
[2023-08-08 12:31] LABS: Squamous Epithelial Cells Rare /hpf (Few)
--- NOTE | 2023-08-08 13:05 | NUR ---
MORNING CARE NOTE THIS RN ASSUMED CARE AT APPROX 0715. PT AOX4. FORGETFUL. LETHARGIC, DIFFICULTY WITH FOLLOWING AND RESPONDING TO CONVERSATION, MUMBLED SPEECH NOTED. PT REPORTING VISUAL DISTURBANCES, SEEING STREAKS OF BLUE AND PURPLE LIGHT INTERMITTENTLY. MD TO BEDSIDE FOR MORNING ROUNDING, MD TO PUT IN NEW ORDERS. HEAD CT ORDERED AND OBTAINED. [facility] ORDER FOR LASIX GTT. VSS. BP SOFT, SBP 100-110'S. REPORTS NO CHEST PAIN OR PRESSURE. TELEMETRY SHOWING AFIB 115'S-130'S. PULSE INCREASE HIGH 150'S, NONSUSTAINING. MD AWARE. INCREASED DOSE OF PO METOPROLOL ADMINISTERED THIS MORNING. CURRENTLY ON ROOM AIR, SATS >90%. MILD DYSPNEA WITH AMBULATION, 1P ASSIST OUT OF BED. PT REPORTS BURNING, URGENCY WITH VOIDING. STRONG ODOR NOTED. FULLER CATHETER INSERTED DUE TO STRICT I/O WITH LASIX GTT. UA COLLECTED AND SENT FOR ANALYSIS. PHYSICAL THERAPY ATTEMPTING TO SEE PT FOR EVALUATION. FAMILY AT BEDSIDE. CALL LIGHT IN REACH, BED ALARM ON.
[2023-08-08 14:21] LABS: Bun/Creatinine Ratio 15.5 (12.0-20.0); Calcium, Blood 7.8 mg/dL (8.5-10.1); Creatinine, Blood 1.16 mg/dL (0.40-1.00); Potassium, Blood 3.8 mmol/L (3.5-5.5)
--- NOTE | 2023-08-08 15:31 | NUR ---
UPDATE THIS RN CONTACTED MD RACHEL AT APPROX 1430 REGARDING INCREASED FORGETFULNESS AND INCREASED VISUAL HALLUCINATIONS. PT REPORTED THAT THERE "WERE SPIDERS CRAWLING" ON HER 'S BACK. MENTATION CHANGES POSSIBLY RELATED TO UTI. TO PUT IN ORDER FOR ABX THERAPY.
--- NOTE | 2023-08-08 17:19 | NUR ---
SHIFT SUMMARY NO ACUTE CHANGES SINCE MORNING NOTE. PT REMAINS AOX4. FORGETFUL. INCREASE IN VISUAL DISTURBANCES, SEE EARLIER NOTES. SPEECH REMAINS MUMBLED. BED ALARM IN PLACE. DEMONSTRATING USE OF CALL LIGHT WHEN INSTRUCTED. VS REMAIN STABLE. BP SOFT, SBP 100-110'S. TELEMETRY SHOWING AFIB 120'S-130'S. LESS EPISODES OF RATE INCREASE TO 140'S-150'S. LASIX GTT INFUSING. CATHETER IN PLACE, DRAINING DEO URINE TO GRAVITY. IV ABX INFUSED THIS AFTERNOON FOR UTI. PT WORKED WITH PHYSICAL AND OCCUPATIONAL THERAPY, 1P ASSIST OUT OF BED TO [facility] WITH FWW. MULTIPLE LOOSE BROWN BM's THIS SHIFT. DECREASED APPETITE NOTED THROUGHOUT SHIFT. ENCOURAGING SNACKS THROUGHOUT. PALLATIVE CARE TO BEDSIDE THIS MORNING. AND DAUGHTER AT BEDSIDE THIS AFTERNOON. PT SLEPT THROUGHOUT AFTERNOON, EARLY EVENING, REMAINS EASILY AROUSABLE TO VERBAL STIMULI. IS CURRENTLY RESTING COMFORTABLY IN BED. CALL LIGHT IN REACH. WILL REPORT TO ONCOMING RN.
[2023-08-09] VITALS (30 sets, daily range): BP systolic 91–133; BP diastolic 54–99
[2023-08-09 03:44] LABS: BASOPHILS ABSOLUTE AUTO 0.01 K/mm3 (0.00-0.23); BASOPHILS PERCENT AUTO 0 % (0-2); EOSINOPHILS ABSOLUTE AUTO 0.01 K/mm3 (0.00-0.68); EOSINOPHILS PERCENT AUTO 0 % (0-6); Hematocrit 29.9 % (33.0-51.0); Hemoglobin 10.4 g/dL (11.5-16.0); IMMATURE GRAN ABSOLUTE AUTO 0.12 K/mm3 (0.00-0.10); IMMATURE GRAN PERCENT AUTO 1 % (0-1); LYMPHOCYTES ABSOLUTE AUTO 0.92 K/mm3 (0.84-5.20); LYMPHOCYTES PERCENT AUTO 11 % (21-46); MONOCYTES ABSOLUTE AUTO 0.55 K/mm3 (0.16-1.47); MONOCYTES PERCENT AUTO 6 % (4-13); Mean Corpuscular HGB 29.6 pg (26.0-34.0); Mean Corpuscular HGB Conc 34.8 g/dL (31.5-36.5); Mean Corpuscular Volume 85 fL (80-100); Mean Platelet Volume 11.1 fL (9.1-12.4); NEUTROPHILS ABSOLUTE AUTO 7.04 K/mm3 (1.96-9.15); NEUTROPHILS PERCENT AUTO 81 % (41-73); Platelet Count 289 K/mm3 (150-400); RDW Coefficient Variation 14.5 % (11.7-14.2); RDW Standard Deviation 44.8 fL (35.1-46.3); Red Blood Cell Count 3.51 M/mm3 (3.80-5.20); White Blood Cell Count 8.65 K/mm3 (4.00-11.30)
[2023-08-09 04:20] LABS: Albumin, Blood 2.2 g/dL (3.4-5.0); Albumin/Globulin Ratio 0.4 (0.8-1.8); Bilirubin, Total 1.1 mg/dL (0.1-1.0); Bun/Creatinine Ratio 14.2 (12.0-20.0); Calcium, Blood 7.7 mg/dL (8.5-10.1); Creatinine, Blood 1.13 mg/dL (0.40-1.00); Globulin, Blood 4.9 g/dL (2.2-4.0); Potassium, Blood 3.8 mmol/L (3.5-5.5); Total Protein, Blood 7.1 g/dL (6.4-8.2)
--- NOTE | 2023-08-09 04:29 | NUR ---
SHIFT SUMMARY THIS RN ASSUMED CARE OF PATIENT AT 1900. PT A&O X4, FORGETFUL AT TIMES. DENIED VISUAL DISTURBANCES FOR THIS RN. PT REPORTED FATIGUE AND APPEARED TO SLEEP FOR THE MAJORITY OF THE SHIFT. PT CONTINUES TO BE IN AFIB WITH HR 110-130'S AT REST, WITH HR INCREASING TO 150'S WITH ACTIVITY. LASIX GTT INFUSING FOR MOST OF THE SHIFT; PLACED ON STANDBY AT 0200 D/T SBP 90'S. SBP REMAINS 90'S AT THIS TIME; THIS RN WILL CONTINUE GTT ONCE SBP >100 PER ORDER. PT DENIES CHEST PAIN/PRESSURE. AFEBRILE. ON RA WITH SPO2 >92%. ARTHUR. 3+ PITTING EDEMA IN BLE. PT ABLE TO REPOSITION SELF IN BED; DECLINES HELP. FULLER CATHETER PATENT AND DRAINING YELLOW URINE TO GRAVITY. BED IN LOWEST POSITION AND CALL LIGHT WITHIN REACH. THIS RN WILL REPORT TO ONCOMING DAYSHIFT RN.
--- NOTE | 2023-08-09 18:09 | NUR ---
ASSUMED CARE OF PT AT 0700 THIS AM. PT A&OX4, ABLE TO USE CALL LIGHT FOR NEEDS. DR RACHEL IN THIS AM TO EVALUATE PT. METOPROLOL DISCONTINUED, PT STARTED ON DIGOXIN. LASIX GTT RESTARTED IN THE LATE MORNING AFTER CLARIFICATION W DR RACHEL. VERY GOOD URINE OUTPUT T/O THE DAY, 1650MLS THIS SHIFT. HR SEEMS TO BE TRENDING DOWN, STILL TACHYCARDIC 130-140 WITH EXERTION. BPs HAVE IMPROVED WELL. PT HAD A BATH AND BOWEL MOVEMENT TODAY. VISITED WITH FRIEND IN ROOM AND ON THE PHONE. PT STATES SHE IS FEELING "ALMOST NORMAL" THIS EVENING. NO ACUTE CHANGES T/O THE SHIFT. CALL LIGHT IN REACH. WILL CONINTUE TO MONITOR AND GIVE REPORT TO NOC SHIFT RN.
[2023-08-10] VITALS (17 sets, daily range): BP systolic 103–126; BP diastolic 61–88
[2023-08-10 05:24] LABS: BASOPHILS ABSOLUTE AUTO 0.04 K/mm3 (0.00-0.23); BASOPHILS PERCENT AUTO 1 % (0-2); EOSINOPHILS ABSOLUTE AUTO 0.02 K/mm3 (0.00-0.68); EOSINOPHILS PERCENT AUTO 0 % (0-6); Hematocrit 36.6 % (33.0-51.0); Hemoglobin 12.7 g/dL (11.5-16.0); IMMATURE GRAN ABSOLUTE AUTO 0.32 K/mm3 (0.00-0.10); IMMATURE GRAN PERCENT AUTO 4 % (0-1); LYMPHOCYTES ABSOLUTE AUTO 1.34 K/mm3 (0.84-5.20); LYMPHOCYTES PERCENT AUTO 18 % (21-46); MONOCYTES PERCENT AUTO 7 % (4-13); Mean Corpuscular HGB Conc 34.7 g/dL (31.5-36.5); Mean Corpuscular Volume 86 fL (80-100); Mean Platelet Volume 11.3 fL (9.1-12.4); NEUTROPHILS ABSOLUTE AUTO 5.11 K/mm3 (1.96-9.15); NEUTROPHILS PERCENT AUTO 70 % (41-73); Platelet Count 390 K/mm3 (150-400); RDW Coefficient Variation 14.4 % (11.7-14.2); RDW Standard Deviation 44.7 fL (35.1-46.3); Red Blood Cell Count 4.24 M/mm3 (3.80-5.20); White Blood Cell Count 7.33 K/mm3 (4.00-11.30)
--- NOTE | 2023-08-10 05:25 | NUR ---
SHIFT SUMMARY THIS RN ASSUMED CARE OF PATIENT AT 1900. PT A&O X4, FORGETFUL AT TIMES. ABLE TO MAKE NEEDS KNOWN. NO NOTED VISUAL DISTURBANCES DURING THIS SHIFT. PT CONTINUES TO BE IN AFIB WITH HR 90-110'S. DENIES CHEST PAIN/PRESSURE. BP STABLE WITH SBP 110-120'S. ON RA WITH SPO2 >92%. LASIX GTT INFUSING PER EMAR. URINE OUTPUT >100MLS/HR. BED IN LOWEST POSITION AND CALL LIGHT WITHIN REACH. THIS RN WILL REPORT TO ONCOMING DAYSHIFT RN.
[2023-08-10 06:06] LABS: Albumin, Blood 2.4 g/dL (3.4-5.0); Albumin/Globulin Ratio 0.4 (0.8-1.8); Bilirubin, Total 0.7 mg/dL (0.1-1.0); Bun/Creatinine Ratio 14.8 (12.0-20.0); Creatinine, Blood 1.22 mg/dL (0.40-1.00); Globulin, Blood 5.8 g/dL (2.2-4.0); Potassium, Blood 4.4 mmol/L (3.5-5.5); Total Protein, Blood 8.2 g/dL (6.4-8.2)
[2023-08-10 06:13] LABS: Calcium, Blood 9.8 mg/dL (8.5-10.1)
--- NOTE | 2023-08-10 18:39 | NUR ---
ASSUMED CARE OF PT AT 0700 THIS AM. NO ACUTE CHANGES. LASIX GTT CONTINUES TO INFUSE PER ORDERS WITH ADEQUATE URINE OUT PUT NOTED TO FULLER CATHETER. DIGOXIN CHANGED TO PO TODAY, HR BETTER CONTROLLED BUT STILL BECOMES ELEVATED WITH ACTIVITY. PT DENIES ANY SYMPTOMS OF CHEST PAIN, PRESSURE, DIZZINESS, SOB. DISCUSSED PLAN OF CARE WITH DR RACHEL THIS AM, POSSIBLE D/C IN AM. VSS STABLE T/O THE DAY. PT DID NOT REPORT ANY HALLUCINATIONS TO THIS RN. PT ABLE TO USE CALL LIGHT FOR NEEDS, CALL LIGHT IN REACH. WILL CONITNUE TO MONITOR AND GIVE REPORT TO NOC SHIFT RN.
[2023-08-11 00:20] VITALS: BP 121/75
[2023-08-11 04:15] VITALS: BP 107/62
[2023-08-11 04:46] LABS: BASOPHILS ABSOLUTE AUTO 0.03 K/mm3 (0.00-0.23); BASOPHILS PERCENT AUTO 1 % (0-2); EOSINOPHILS ABSOLUTE AUTO 0.02 K/mm3 (0.00-0.68); EOSINOPHILS PERCENT AUTO 0 % (0-6); Hematocrit 37.6 % (33.0-51.0); Hemoglobin 12.9 g/dL (11.5-16.0); IMMATURE GRAN ABSOLUTE AUTO 0.31 K/mm3 (0.00-0.10); IMMATURE GRAN PERCENT AUTO 5 % (0-1); LYMPHOCYTES ABSOLUTE AUTO 1.56 K/mm3 (0.84-5.20); LYMPHOCYTES PERCENT AUTO 25 % (21-46); MONOCYTES ABSOLUTE AUTO 0.59 K/mm3 (0.16-1.47); MONOCYTES PERCENT AUTO 10 % (4-13); Mean Corpuscular HGB 29.7 pg (26.0-34.0); Mean Corpuscular HGB Conc 34.3 g/dL (31.5-36.5); Mean Corpuscular Volume 86 fL (80-100); Mean Platelet Volume 10.7 fL (9.1-12.4); NEUTROPHILS ABSOLUTE AUTO 3.69 K/mm3 (1.96-9.15); NEUTROPHILS PERCENT AUTO 60 % (41-73); Platelet Count 406 K/mm3 (150-400); Red Blood Cell Count 4.35 M/mm3 (3.80-5.20)
--- NOTE | 2023-08-11 05:11 | NUR ---
SHIFT SUMMARY THIS RN ASSUMED CARE OF PATIENT AT 1900. NO ACUTE CHANGES OVERNIGHT. AFIB WITH HR 90-110'S; INCREASES TO 140'S WITH ACTIVITY. OTHER VITALS STABLE. LASIX GTT INFUSING AT 10MG/HR. PT ABLE TO REPOSITION SELF IN BED INDEPENDENTLY. NO NEURO CHANGES. PT CALLING APPRORIATELY. FULLER CATHETER PATENT AND DRAINING TO GRAVITY. BED IN LOWEST POSITION AND CALL LIGHT WITHIN REACH. THIS RN WILL REPORT TO ONCOMING DAYSHIFT RN.
[2023-08-11 05:44] LABS: Albumin, Blood 2.7 g/dL (3.4-5.0); Albumin/Globulin Ratio 0.5 (0.8-1.8); Bilirubin, Total 0.6 mg/dL (0.1-1.0); Bun/Creatinine Ratio 17.7 (12.0-20.0); Calcium, Blood 10.7 mg/dL (8.5-10.1); Creatinine, Blood 1.24 mg/dL (0.40-1.00); Globulin, Blood 5.9 g/dL (2.2-4.0); Potassium, Blood 4.3 mmol/L (3.5-5.5); Total Protein, Blood 8.6 g/dL (6.4-8.2)
[2023-08-11 07:00] VITALS: BP 103/78
--- NOTE | 2023-08-11 16:29 | NUR ---
PT HAS BEEN RESTIN WELL IN BED T/O THE DAY. SHE HAS NOT REPORTED ANY VISUAL HALLUCINATIONS TODAY OR VISUAL DISTURBANCES. SHE IS ALERT, ORIENTED TO PLACE AND SELF, SHE IS ABLE TO TRACK WELL IN CONVERSATION. DR HOPPER WAS IN TO SEE PT TODAY AND THE DECISION WAS MADE TO OBSERVE HER ANOTHER DAY HER MEAN HEART RATE HAD REMAINED IN THE 110s-130s FOR THE MORNING, AND DID HIT THE 160s WHEN WORKING WITH OCCUPATIONAL THERAPY. HER DAUGTHER WAS UPDATED THAT SHE WOULD BE MONITORED FOR ANOTHER DAY. [place] IS DEPRESSED THAT SHE WILL REMAIN IN THE THE HOSPITAL ANOTHER DAY BUT EXPRESSED UNDERSTANDING OF WHY. SHE DENIES CP OR SOB. REPORTED RASH TO HEAD AND BACK ARE NOTED DETECTED BY MYSELF OR DR ERVIN TODAY. ELBA GUTIERREZ WAS D/C THIS AFTERNOON. VSS. NADN. BLE EDEMA IS VERY MINIMAL BUT YOU CAN SEE THAT SKIN HAD BEEN PREVIOUSLY STRETCHED FROM EDEMA.
[2023-08-11 17:30] VITALS: BP 104/73
[2023-08-11 19:48] VITALS: BP 113/77
[2023-08-11 23:58] VITALS: BP 128/91
[2023-08-12 03:21] VITALS: BP 107/87
[2023-08-12 03:47] LABS: BASOPHILS ABSOLUTE AUTO 0.02 K/mm3 (0.00-0.23); BASOPHILS PERCENT AUTO 0 % (0-2); EOSINOPHILS ABSOLUTE AUTO 0.01 K/mm3 (0.00-0.68); EOSINOPHILS PERCENT AUTO 0 % (0-6); Hematocrit 37.1 % (33.0-51.0); Hemoglobin 12.5 g/dL (11.5-16.0); IMMATURE GRAN ABSOLUTE AUTO 0.23 K/mm3 (0.00-0.10); IMMATURE GRAN PERCENT AUTO 4 % (0-1); LYMPHOCYTES ABSOLUTE AUTO 1.54 K/mm3 (0.84-5.20); LYMPHOCYTES PERCENT AUTO 27 % (21-46); MONOCYTES ABSOLUTE AUTO 0.51 K/mm3 (0.16-1.47); MONOCYTES PERCENT AUTO 9 % (4-13); Mean Corpuscular HGB 29.4 pg (26.0-34.0); Mean Corpuscular HGB Conc 33.7 g/dL (31.5-36.5); Mean Corpuscular Volume 87 fL (80-100); Mean Platelet Volume 10.4 fL (9.1-12.4); NEUTROPHILS PERCENT AUTO 60 % (41-73); Platelet Count 406 K/mm3 (150-400); RDW Coefficient Variation 14.1 % (11.7-14.2); RDW Standard Deviation 44.2 fL (35.1-46.3); Red Blood Cell Count 4.25 M/mm3 (3.80-5.20); White Blood Cell Count 5.71 K/mm3 (4.00-11.30)
[2023-08-12 04:23] LABS: Albumin, Blood 2.8 g/dL (3.4-5.0); Albumin/Globulin Ratio 0.5 (0.8-1.8); Bilirubin, Total 0.5 mg/dL (0.1-1.0); Bun/Creatinine Ratio 20.3 (12.0-20.0); Calcium, Blood 10.2 mg/dL (8.5-10.1); Creatinine, Blood 1.28 mg/dL (0.40-1.00); Globulin, Blood 5.6 g/dL (2.2-4.0); Phosphorus, Blood 5.2 mg/dL (2.5-4.9); Potassium, Blood 4.2 mmol/L (3.5-5.5); Total Protein, Blood 8.4 g/dL (6.4-8.2)
--- NOTE | 2023-08-12 06:23 | NUR ---
SHIFT SUMMARY PATIENT ALERT AND ORIENTED X4, OCCASIONAL CONFUSION NOTED. PATIENT IS WEAK AND REQUIRES 1 PERSON ASSIST TO THE BEDSIDE COMMODE. FULLER CATHETER IN PLACE, CUTTENTLY BLADDER TRAINING. MEDICATED PER EMAR FOR HEADACHE AND NAUSEA. ON ROOM AIR. DENIES CHEST PAIN AND SHORTNESS OF BREATH. BLOOD PRESSURE STABLE, AFIB ON TELE WITH HEART RATE HITTING THE 140'S WITH ACTIVITY. WILL CONTINUE TO MONITOR. CALL LIGHT WITHIN REACH.
[2023-08-12 08:42] VITALS: BP 117/69
[2023-08-12] MEDS ORDERED: DIGOX125 MC1 PO (11:17)
[2023-08-12] MEDS ORDERED: LACT (11:18)
[2023-08-12] MEDS ORDERED: VALA500 PO (11:18)
[2023-08-12] MEDS ORDERED: CEFP200 (11:18)
--- NOTE | 2023-08-12 12:42 | NUR ---
PT EX[RESSED UNDERSTANDING OF DC TEACHING. POWERLGIDE REMOVED AND PRESSURE DRESSED. SHE IS CALLING SPOUSE FOR RIDE HOME. HER MEDICATIONS ARE FAXED TO [facility] IS CLOSED TODAY
== END 2023-08-12 12:36 | disposition home or self-care (01) | DRG 308 ==
LOC: ER 18:12 → PCU 18:13
PROVIDERS: Family Medicine; Hospitalist; Student in an Organized Health Care Education/Training Program; ADMIT Internal Medicine
PROC: 3E02340 Introduction of Influenza Vaccine into Muscle, Percutaneous Approach (ICD-10-PCS; 2023-08-07)
PROC: B24BZZZ Ultrasonography of Heart with Aorta (ICD-10-PCS; principal; 2023-08-09)
DX: I48.21 Permanent atrial fibrillation (principal); I50.23 Acute on chronic systolic (congestive) heart failure; C90.00 Multiple myeloma not having achieved remission; N17.9 Acute kidney failure, unspecified; N39.0 Urinary tract infection, site not specified; E87.1 Hypo-osmolality and hyponatremia; Z66 Do not resuscitate; N18.31 Chronic kidney disease, stage 3a; B02.9 Zoster without complications; J44.9 Chronic obstructive pulmonary disease, unspecified; E87.6 Hypokalemia; I69.312 Visuospatial deficit and spatial neglect following cerebral infarction; D63.1 Anemia in chronic kidney disease; K83.8 Other specified diseases of biliary tract; B96.20 Unspecified Escherichia coli [E. coli] as the cause of diseases classified elsewhere; I25.2 Old myocardial infarction; Z88.5 Allergy status to narcotic agent; Z88.8 Allergy status to other drugs, medicaments and biological substances; Z79.01 Long term (current) use of anticoagulants; Z87.891 Personal history of nicotine dependence; Z79.2 Long term (current) use of antibiotics; Z23 Encounter for immunization
CPT/HCPCS: 36415; 70450; 71045; 76705; 80048; 80053; 81001; 82248; 82570; 83735; 83880; 83935; 84100; 84300; 84443; 84484; 84540; 85025; 87077; 87086; 87186; 93005; 93010; 93306; 96365; 96366; 96375; 97110; 97116; 97162; 97166; 97530; 97535; 99285-25; A9270; J0696; J1160; J1940; J3480; J7030; Q2036

== ENCOUNTER → 2023-08-07 | Outpatient (CLI) | payer MEDICARE, OTHER ==
[2023-08-07 14:36] LABS: BASOPHILS ABSOLUTE AUTO 0.02 K/mm3 (0.00-0.23); BASOPHILS PERCENT AUTO 0 % (0-2); EOSINOPHILS ABSOLUTE AUTO 0.01 K/mm3 (0.00-0.68); EOSINOPHILS PERCENT AUTO 0 % (0-6); Hematocrit 32.7 % (33.0-51.0); Hemoglobin 11.1 g/dL (11.5-16.0); IMMATURE GRAN ABSOLUTE AUTO 0.06 K/mm3 (0.00-0.10); IMMATURE GRAN PERCENT AUTO 1 % (0-1); LYMPHOCYTES ABSOLUTE AUTO 0.69 K/mm3 (0.84-5.20); LYMPHOCYTES PERCENT AUTO 10 % (21-46); MONOCYTES ABSOLUTE AUTO 0.69 K/mm3 (0.16-1.47); MONOCYTES PERCENT AUTO 10 % (4-13); Mean Corpuscular HGB 30.1 pg (26.0-34.0); Mean Corpuscular HGB Conc 33.9 g/dL (31.5-36.5); Mean Corpuscular Volume 89 fL (80-100); Mean Platelet Volume 12.3 fL (9.1-12.4); NEUTROPHILS PERCENT AUTO 79 % (41-73); Platelet Count 244 K/mm3 (150-400); RDW Coefficient Variation 14.5 % (11.7-14.2); RDW Standard Deviation 46.4 fL (35.1-46.3); Red Blood Cell Count 3.69 M/mm3 (3.80-5.20); White Blood Cell Count 7.07 K/mm3 (4.00-11.30)
[2023-08-07 15:38] LABS: Albumin, Blood 2.8 g/dL (3.4-5.0); Albumin/Globulin Ratio 0.5 (0.8-1.8); Bilirubin, Total 2.5 mg/dL (0.1-1.0); Bun/Creatinine Ratio 15.1 (12.0-20.0); Calcium, Blood 7.8 mg/dL (8.5-10.1); Creatinine, Blood 1.46 mg/dL (0.40-1.00); Globulin, Blood 5.2 g/dL (2.2-4.0); Potassium, Blood 3.4 mmol/L (3.5-5.5)
== END | disposition home or self-care (01) ==
LOC: LAB SHORT 14:26 → LAB 14:26
PROVIDERS: Nurse Practitioner
DX: C90.00 Multiple myeloma not having achieved remission (principal)
CPT/HCPCS: 80053; 85025

== ENCOUNTER → 2023-10-04 | Outpatient (CLI) | payer MEDICARE, OTHER ==
[~2023-10-04] MED LIST changes: +CEFP200; +DIGOX125 MC1 PO; +LACT; +VALA500 PO
[2023-10-04 13:40] LABS: BASOPHILS ABSOLUTE AUTO 0.04 K/mm3 (0.00-0.23); BASOPHILS PERCENT AUTO 1 % (0-2); EOSINOPHILS ABSOLUTE AUTO 0.12 K/mm3 (0.00-0.68); EOSINOPHILS PERCENT AUTO 2 % (0-6); Hematocrit 35.7 % (33.0-51.0); Hemoglobin 11.4 g/dL (11.5-16.0); IMMATURE GRAN ABSOLUTE AUTO 0.03 K/mm3 (0.00-0.10); IMMATURE GRAN PERCENT AUTO 1 % (0-1); LYMPHOCYTES ABSOLUTE AUTO 1.14 K/mm3 (0.84-5.20); LYMPHOCYTES PERCENT AUTO 23 % (21-46); MONOCYTES ABSOLUTE AUTO 0.48 K/mm3 (0.16-1.47); MONOCYTES PERCENT AUTO 10 % (4-13); Mean Corpuscular HGB 31.1 pg (26.0-34.0); Mean Corpuscular HGB Conc 31.9 g/dL (31.5-36.5); Mean Corpuscular Volume 97 fL (80-100); Mean Platelet Volume 9.6 fL (9.1-12.4); NEUTROPHILS ABSOLUTE AUTO 3.12 K/mm3 (1.96-9.15); NEUTROPHILS PERCENT AUTO 63 % (41-73); Platelet Count 336 K/mm3 (150-400); RDW Coefficient Variation 17.5 % (11.7-14.2); RDW Standard Deviation 63.1 fL (35.1-46.3); Red Blood Cell Count 3.67 M/mm3 (3.80-5.20); White Blood Cell Count 4.93 K/mm3 (4.00-11.30)
[2023-10-04 13:51] LABS: Albumin, Blood 3.1 g/dL (3.4-5.0); Anion Gap 6 mmol/L (6-16); Blood Urea Nitrogen 11 mg/dL (8-24); CO2, Blood 27 mmol/L (21-32); Calcium, Blood 8.1 mg/dL (8.5-10.1); Chloride, Blood 104 mmol/L (98-108); Creatinine, Blood 1.37 mg/dL (0.40-1.00); Glomerular Filtration Rate 40 (60-); Glucose, Blood 99 mg/dL (70-99); Phosphorus, Blood 2.2 mg/dL (2.5-4.9); Sodium, Blood 137 mmol/L (136-145)
== END | disposition home or self-care (01) ==
LOC: LAB SHORT 12:27 → LAB 12:27
PROVIDERS: Family Medicine
DX: E87.70 Fluid overload, unspecified (principal)
CPT/HCPCS: 80069; 83880; 85025

== ENCOUNTER 2024-09-11 11:06 | Emergency (ER) | payer MEDICARE, OTHER ==
[~2024-09-11] VITALS: Ht 172.7 cm; Wt 83.9 kg
[2024-09-11 11:14] VITALS: BP 181/88
[2024-09-11] MEDS ORDERED: Lidocaine 4% 1 Patch TOP ONE (15:10)
[2024-09-11] MEDS ORDERED: HYDROmorphone HCl/Pf 1MG SYR IM ONE (15:15)
== END 2024-09-11 15:34 | disposition home or self-care (01) ==
LOC: ER 11:06
DX: R07.81 Pleurodynia (principal); J44.9 Chronic obstructive pulmonary disease, unspecified; I25.2 Old myocardial infarction; I48.91 Unspecified atrial fibrillation; Z87.891 Personal history of nicotine dependence; Z79.899 Other long term (current) drug therapy; Z88.5 Allergy status to narcotic agent; Z88.8 Allergy status to other drugs, medicaments and biological substances
CPT/HCPCS: 71101; 99283-25; A9270; J1171

== ENCOUNTER 2024-09-13 11:50 | Emergency (ER) | payer MEDICARE, OTHER ==
[~2024-09-13] VITALS: Ht 172.7 cm; Wt 72.6 kg
[2024-09-13 12:05] VITALS: BP 183/94
[2024-09-13] MEDS ORDERED: Lactulose 20 GM/30 ML UDC PO ONE (12:15)
[2024-09-13 12:33] LABS: BASOPHILS ABSOLUTE AUTO 0.01 K/mm3 (0.00-0.23); BASOPHILS PERCENT AUTO 0 % (0-2); EOSINOPHILS ABSOLUTE AUTO 0.02 K/mm3 (0.00-0.68); EOSINOPHILS PERCENT AUTO 1 % (0-6); Hematocrit 35.2 % (33.0-51.0); Hemoglobin 11.4 g/dL (11.5-16.0); IMMATURE GRAN ABSOLUTE AUTO 0.01 K/mm3 (0.00-0.10); IMMATURE GRAN PERCENT AUTO 0 % (0-1); LYMPHOCYTES PERCENT AUTO 21 % (21-46); MONOCYTES ABSOLUTE AUTO 0.34 K/mm3 (0.16-1.47); MONOCYTES PERCENT AUTO 8 % (4-13); Mean Corpuscular HGB 32.6 pg (26.0-34.0); Mean Corpuscular HGB Conc 32.4 g/dL (31.5-36.5); Mean Corpuscular Volume 101 fL (80-100); Mean Platelet Volume 9.3 fL (9.1-12.4); NEUTROPHILS ABSOLUTE AUTO 3.11 K/mm3 (1.96-9.15); NEUTROPHILS PERCENT AUTO 71 % (41-73); Platelet Count 271 K/mm3 (150-400); RDW Coefficient Variation 13.6 % (11.7-14.2); RDW Standard Deviation 50.3 fL (35.1-46.3); White Blood Cell Count 4.39 K/mm3 (4.00-11.30)
[2024-09-13 12:52] LABS: Bun/Creatinine Ratio 12.5 (12.0-20.0); Creatinine, Blood 1.12 mg/dL (0.40-1.00)
[2024-09-13] MEDS ORDERED: Magnesium Citrate 300 ML BTL PO ONE (14:40)
[2024-09-13] MEDS ORDERED: Robaxin750 MG PO (15:09)
[2024-09-13] MEDS ORDERED: OXAYDO5 M1 PO (15:09)
== END 2024-09-13 15:37 | disposition home or self-care (01) ==
LOC: ER 11:50
PROVIDERS: Emergency Medicine
DX: M62.830 Muscle spasm of back (principal); K59.00 Constipation, unspecified; I48.91 Unspecified atrial fibrillation; Z87.891 Personal history of nicotine dependence
CPT/HCPCS: 74018; 80048; 83690; 85025; 99283-25; A9270

== ENCOUNTER → 2024-09-16 | Outpatient (CLI) | payer MEDICARE, OTHER ==
[~2024-09-16] MED LIST changes: +OXAYDO5 M1 PO
== END | disposition home or self-care (01) ==
LOC: LAB SHORT 14:58 → LAB 14:58
DX: R35.0 Frequency of micturition (principal)
CPT/HCPCS: 87077; 87086; 87186